=== PATIENT | female | born 1990 | race Caucasian/White ===

== ENCOUNTER → 2017-03-09 | Outpatient (REF) | payer BC ==
[~2017-03-09] MED LIST: ACET50TA PO; IBUP60TA PO; VITAPRTA PO; [UNRECOGNIZED DRUG - CODE] PO
== END ==
LOC: M LAB REF 15:14
PROVIDERS: ATTEND Physician Assistant
DX: J06.9 Acute upper respiratory infection, unspecified (principal)

== ENCOUNTER 2017-08-14 12:21 | Emergency (ER) | payer OTHER, BC ==
[2017-08-14] MEDS: KETOROLAC TROMETHAMINE 10 MG TAB PO (12:30)
== END 2017-08-14 12:39 | disposition home or self-care (01) ==
LOC: M ED 12:21
DX: S39.92XA Unspecified injury of lower back, initial encounter (principal); X50.0XXA Overexertion from strenuous movement or load, initial encounter; Y92.129 Unspecified place in nursing home as the place of occurrence of the external cause
CPT/HCPCS: 99282

== ENCOUNTER 2018-12-06 11:29 | Emergency (ER) | payer OTHER ==
[~2018-12-06] VITALS: Ht 162.6 cm; Wt 59.5 kg
[~2018-12-06 11:29] MED LIST changes: -ACET50TA PO; +IBUP600T42 PO; -IBUP60TA PO; +MAPA500T2 PO; +NAPR-885 PO; +ROBA500T PO
[2018-12-06] MEDS ORDERED: ACET160S3 PO (11:35)
[2018-12-06 12:23] LABS: BASO % 0.3 % (0.0-1.0); EOS % 0.2 % (0.0-3.0); HEMATOCRIT 35.1 % (36.0-47.0); HEMOGLOBIN 11.9 g/dl (12.0-15.5); LYMPH # 1.5 10^3/uL (1.5-6.5); LYMPH % 15.3 % (24.0-44.0); MEAN CORPUSCULAR HEMOGLOBIN 30.4 pg (27.0-33.0); MEAN CORPUSCULAR HGB CONC 33.9 g/dl (32.0-36.5); MEAN CORPUSCULAR VOLUME 89.8 fl (80.0-96.0); MONO # 0.6 10^3/uL (0.0-0.8); MONO % 6.3 % (0.0-5.0); NEUTROPHILS # 7.6 10^3/uL (1.8-7.7); NEUTROPHILS % 77.4 % (36.0-66.0); PLATELET COUNT, AUTOMATED 163 10^3/uL (150-450); RED BLOOD COUNT 3.91 10^6/uL (4.00-5.40); WHITE BLOOD COUNT 9.9 10^3/uL (4.0-10.0)
--- NOTE | 2018-12-06 13:15 | REP ---
FIRST TRIMESTER ULTRASOUND: Real-time sonographic evaluation of gravid uterus performed utilizing transabdominal technique. There is a single living intrauterine gestation. Estimated gestational age is 6 weeks 6 days based on a crown-rump length of 9 mm, EDC 07/26/2019. heart rate 141 beats per minute. There is no subchorionic hemorrhage. Cystic structure in the left ovary may represent a corpus luteum 3.0 x 3.4 x 2.9 cm. No torsion is seen. Electronically Signed by Dale Sharma MD 12/07/2018 02:57 P
[2018-12-06 14:00] LABS: BLOOD UREA NITROGEN 8 MG/DL (7-18); CALCIUM LEVEL 8.6 MG/DL (8.5-10.1); CARBON DIOXIDE LEVEL 21 MEQ/L (21-32); CHLORIDE LEVEL 106 MEQ/L (98-107); CREATININE FOR GFR 0.64 MG/DL (0.55-1.30); GLOMERULAR FILTRATION RATE > 60.0 (>60); GLUCOSE, FASTING 89 MG/DL (70-100); POTASSIUM SERUM 3.8 MEQ/L (3.5-5.1); SODIUM LEVEL 138 MEQ/L (136-145)
[2018-12-06 14:18] LABS: HCG, SERUM QUANTITATIVE 127322 MIU/ML
[2018-12-06 15:15] VITALS: BP 109/65
== END 2018-12-06 15:31 | disposition home or self-care (01) ==
LOC: M ED 11:29
DX: O20.0 Threatened abortion (principal); O26.891 Other specified pregnancy related conditions, first trimester; O20.8 Other hemorrhage in early pregnancy; Z3A.01 Less than 8 weeks gestation of pregnancy

== ENCOUNTER → 2018-12-20 | Outpatient (CLI) | payer OTHER ==
[~2018-12-20] MED LIST changes: +ACET160S3 PO
[2018-12-20 14:43] LABS: BASO % 0.3 % (0.0-1.0); EOS # 0.1 10^3/uL (0.0-0.50); EOS % 0.8 % (0.0-3.0); HEMATOCRIT 37.4 % (36.0-47.0); HEMOGLOBIN 12.3 g/dl (12.0-15.5); LYMPH # 2.1 10^3/uL (1.5-6.5); MEAN CORPUSCULAR HEMOGLOBIN 31.1 pg (27.0-33.0); MEAN CORPUSCULAR HGB CONC 32.9 g/dl (32.0-36.5); MEAN CORPUSCULAR VOLUME 94.4 fl (80.0-96.0); MONO # 0.8 10^3/uL (0.0-0.8); MONO % 6.7 % (0.0-5.0); NEUTROPHILS # 8.4 10^3/uL (1.8-7.7); NEUTROPHILS % 73.6 % (36.0-66.0); PLATELET COUNT, AUTOMATED 165 10^3/uL (150-450); RED BLOOD COUNT 3.96 10^6/uL (4.00-5.40); WHITE BLOOD COUNT 11.4 10^3/uL (4.0-10.0)
[2018-12-21 11:43] LABS: HEPATITIS C VIRUS ABY INDEX 0.1 INDEX (<0.8); HIV 1&2 SCREEN CENTAUR NEGATIVE (NEGATIVE); RUBELLA IgG QUALITATIVE IMMUNE (IMMUNE)
[2018-12-21 11:59] LABS: CHLAMYDIA DNA AMPLIFICATION NEGATIVE (NEGATIVE); GC DNA AMPLIFICATION NEGATIVE (NEGATIVE)
== END ==
LOC: M SMT 11:15
PROVIDERS: ATTEND Advanced Practice Midwife
DX: Z34.81 Encounter for supervision of other normal pregnancy, first trimester (principal); Z3A.09 9 weeks gestation of pregnancy

== ENCOUNTER → 2019-02-22 | Outpatient (CLI) | payer OTHER ==
--- NOTE | 2019-02-22 13:14 | REP ---
Obstetric ultrasound for anatomy: There is a single intrauterine gestation in a breech presentation. There is movement and cardiac activity. The heart rate is 147 beats per minute. Placenta is posterior and fundal. There is no placenta previa or abruptio. The placenta is grade 1. The amniotic fluid volume subjectively is normal. The cervix measures 4.1 cm in length. There is a lower uterine segment contraction during the examination. Gestational age by today's ultrasound is 19 weeks 1 day/BK 07/18/2019. Gestational age by the first ultrasound is 18 weeks 0 days/BK 07/26/2019. Gestational age by LMP is 18 weeks 5 days/BK 07/21/2019. weight is 279 grams/0 pounds, 9 ounces. This is the 66th percentile for 18 weeks 5 days. The following anatomic structures are identified and are unremarkable: Cranium, cavum septum pellucidum, cerebellum, upper lip, facial profile, face, lungs, four-chamber heart, cardiac right and left ventricular outflow tracts, diaphragm, stomach, cord insertion, three-vessel cord, bladder, upper lower extremities. There are bilateral choroid plexus cysts. The renal calyces are mildly dilated bilaterally measuring up to 4.9 mm on the right at 4.5 mm on the left. The spine is suboptimally visualized because of position. Followup study dedicated to the choroid plexus, kidneys and spine might be considered. Electronically Signed by Dale Garza MD 02/22/2019 01:06 P
== END ==
LOC: M RAD 10:24
PROVIDERS: ATTEND Obstetrics & Gynecology
DX: O32.1XX0 Maternal care for breech presentation, not applicable or unspecified (principal); Z36.89 Encounter for other specified antenatal screening; Z3A.18 18 weeks gestation of pregnancy

== ENCOUNTER → 2019-03-18 | Outpatient (CLI) | payer OTHER | LOC: M SMT 11:01 | PROVIDERS: ATTEND Advanced Practice Midwife | DX: O28.5 Abnormal chromosomal and genetic finding on antenatal screening of mother (principal); Z3A.00 Weeks of gestation of pregnancy not specified ==

== ENCOUNTER → 2019-03-25 | Outpatient (CLI) | payer OTHER ==
--- NOTE | 2019-03-25 13:28 | REP ---
Clinical: Anatomical evaluation. Comparison: 02/22/2019 Findings: Examination demonstrates a single live intrauterine in cephalic presentation. motion is identified by technologist. Placenta is noted posterior fundal and grade zero without evidence for placenta previa or abruption. Amniotic fluid volume is normal. Cervix measures 4.3 cm in length and appears closed. No evidence for nuchal cord. Gestational age by LMP 23 weeks 1 day with BK at 07/21/2019 . Gestational age by current measurements 23 weeks 6 days with BK 07/16/2019 . FHR equals 141 beats per minute. Estimated weight 664 grams ( 78th percentile). Anatomical assessment demonstrates normal structures including choroid plexus, and spine. Impression: Single live intrauterine in cephalic presentation demonstrating appropriate interval growth. In conjunction with prior examination anatomical assessment is complete and normal. No gross abnormalities are identified. Electronically Signed by Toni Olivia MD 03/25/2019 01:19 P
== END ==
LOC: M RAD 12:31
PROVIDERS: ATTEND Advanced Practice Midwife
DX: Z36.9 Encounter for antenatal screening, unspecified (principal); Z3A.23 23 weeks gestation of pregnancy

== ENCOUNTER → 2019-04-15 | Outpatient (CLI) | payer OTHER ==
[2019-04-15 14:01] LABS: HEMATOCRIT 29.8 % (36.0-47.0); HEMOGLOBIN 9.4 g/dl (12.0-15.5); MEAN CORPUSCULAR HEMOGLOBIN 30.3 pg (27.0-33.0); MEAN CORPUSCULAR HGB CONC 31.5 g/dl (32.0-36.5); MEAN CORPUSCULAR VOLUME 96.1 fl (80.0-96.0); PLATELET COUNT, AUTOMATED 104 10^3/uL (150-450); WHITE BLOOD COUNT 8.4 10^3/uL (4.0-10.0)
== END ==
LOC: M SMT 09:57
PROVIDERS: ATTEND Advanced Practice Midwife
DX: Z34.82 Encounter for supervision of other normal pregnancy, second trimester (principal)

== ENCOUNTER → 2019-05-14 | Outpatient (REF) | payer OTHER ==
[2019-05-14 18:33] LABS: HEMATOCRIT 34.4 % (36.0-47.0); HEMOGLOBIN 11.1 g/dl (12.0-15.5); MEAN CORPUSCULAR HEMOGLOBIN 29.8 pg (27.0-33.0); MEAN CORPUSCULAR HGB CONC 32.3 g/dl (32.0-36.5); MEAN CORPUSCULAR VOLUME 92.5 fl (80.0-96.0); PLATELET COUNT, AUTOMATED 106 10^3/uL (150-450); RED BLOOD COUNT 3.72 10^6/uL (4.00-5.40); WHITE BLOOD COUNT 9.2 10^3/uL (4.0-10.0)
== END ==
LOC: M PLALAB 13:28
PROVIDERS: ATTEND Specialist
DX: O99.013 Anemia complicating pregnancy, third trimester (principal)

== ENCOUNTER → 2019-06-18 | Outpatient (CLI) | payer OTHER ==
--- NOTE | 2019-06-19 03:06 | REP ---
Clinical: Growth evaluation evaluation. Comparison: 03/25/2019 . Findings: Examination demonstrates a single live intrauterine in cephalic presentation. motion is identified by technologist. Placenta is noted posterior and grade I without evidence for placenta previa or abruption. Amniotic fluid volume is normal. Cervix measures 4.8 cm in length and appears closed. No evidence for nuchal cord. Gestational age by LMP 35 weeks 2 days with BK 07/21/2019 . Gestational age by current measurements 36 weeks 0 days with BK 07/16/2019 . FHR equals 139 beats per minute. BPD 8.8 cm 35 weeks 3 days HC 31.6 cm 35 weeks 4 days AC 35.7 cm 39 weeks 4 days (greater than 95th percentile) FL 6.8 cm 34 weeks 6 days HL 6.0 cm 35 weeks 0 days HC/AC ratio 0.89 Estimated weight 3249 grams ( 92nd percentile). Amniotic fluid index: 12.4 cm Umbilical cord SD ratio: 2.02 Impression: Single live intrauterine in cephalic presentation demonstrating essentially normal appropriate growth. Findings as described above. Electronically Signed by Toni Olivia MD 06/19/2019 02:57 A
== END ==
LOC: M RAD 09:52
PROVIDERS: ATTEND Advanced Practice Midwife
DX: O26.849 Uterine size-date discrepancy, unspecified trimester (principal); Z3A.35 35 weeks gestation of pregnancy

== ENCOUNTER → 2019-06-25 | Outpatient (REF) | payer OTHER | LOC: M SFHCWAGY 13:42 | PROVIDERS: ATTEND Advanced Practice Midwife | DX: Z34.93 Encounter for supervision of normal pregnancy, unspecified, third trimester (principal) ==

== ENCOUNTER → 2019-06-25 | Outpatient (CLI) | payer OTHER | LOC: M PLALAB 11:08 | PROVIDERS: ATTEND Advanced Practice Midwife | DX: Z34.93 Encounter for supervision of normal pregnancy, unspecified, third trimester (principal) ==

== ENCOUNTER 2019-07-14 14:39 | Inpatient (IN) | payer OTHER ==
[2019-07-14] VITALS (12 sets, daily range): BP systolic 92–132; BP diastolic 53–75
[~2019-07-14] VITALS: Ht 162.6 cm; Wt 74.6 kg
[2019-07-14] MEDS ORDERED: PRENTAB9 PO (15:07)
[2019-07-14] MEDS ORDERED: TUMS500C PO ×2 (15:07)
[2019-07-14] MEDS ORDERED: LACTATED RINGER'S 1000 ML IV STA (15:44)
[2019-07-14 16:05] LABS: HEMATOCRIT 35.1 % (36.0-47.0); HEMOGLOBIN 11.6 g/dl (12.0-15.5); MEAN CORPUSCULAR HEMOGLOBIN 29.6 pg (27.0-33.0); MEAN CORPUSCULAR VOLUME 89.5 fl (80.0-96.0); PLATELET COUNT, AUTOMATED 101 10^3/uL (150-450); RED BLOOD COUNT 3.92 10^6/uL (4.00-5.40); WHITE BLOOD COUNT 8.7 10^3/uL (4.0-10.0)
[2019-07-14] MEDS ORDERED: OXYTOCIN DRIP 30 UNITS in IV 1 EA IV SCH (16:15)
[2019-07-14] MEDS ORDERED: FENTANYL 2MCG/ML ROPIVACAINE 0.2% IN 0.9% NACL 100ML IVBAG As Ordered ONE (17:10)
[2019-07-14] MEDS: LR 1,000 ML IV SCH ×2 (17:27→21:49)
[2019-07-14] MEDS ORDERED: LACTATED RINGER'S 1000 ML IV PRN (18:30)
[2019-07-14] MEDS ORDERED: EPIDURAL COMMENT XX SCH (18:30)
[2019-07-14] MEDS ORDERED: EPIDURAL/PCA KEYS XX PRN (18:30)
[2019-07-14] MEDS ORDERED: ePHEDrine SULFATE 25 MG/5 ML(5MG/ML) SYRINGE IV PRN (18:30)
[2019-07-14] MEDS ORDERED: diphenhydrAMINE INJ 50MG/ML VIAL (J1200) IV PRN (18:30)
[2019-07-14] MEDS ORDERED: FENTANYL/ROPIVACAINE/NACL BAG 100 ML EPIDURAL SCH (18:30)
[2019-07-14] MEDS ORDERED: ONDANSETRON 4MG/2ML VIAL (J2405) IV PRN (18:30)
[2019-07-14] MEDS ORDERED: NALOXONE INJ 0.4 MG/1 ML VIAL (J2310) IV PRN (18:30)
[2019-07-14] MEDS ORDERED: REFRIGERATOR IV KEYS XX PRN (18:30)
[2019-07-15] MEDS ORDERED: OXYTOCIN DRIP 30 UNITS in IV 1 EA IV SCH (01:21)
[2019-07-15] MEDS ORDERED: LR 1,000 ML IV SCH (01:21)
[2019-07-15] MEDS ORDERED: DOCUSATE SODIUM 100 MG CAP PO PRN (01:30)
[2019-07-15] MEDS ORDERED: IBUPROFEN 600 MG TAB PO PRN (01:30)
[2019-07-15] MEDS ORDERED: MEASLES,MUMPS,RUBELLA VACCINE INJ (MMR-II) (90707) SC SCH (01:30)
[2019-07-15] MEDS ORDERED: DIBUCAINE 1% OINTMENT 30GM TOP PRN (01:30)
[2019-07-15] MEDS ORDERED: ONDANSETRON 4MG/2ML VIAL (J2405) IV PRN (01:30)
[2019-07-15] MEDS ORDERED: PROMETHAZINE 25 MG TAB PO PRN (01:30)
[2019-07-15] MEDS ORDERED: ACETAMINOPHEN TAB 650MG DOSE (2X325MG) PO PRN (01:30)
[2019-07-15] MEDS ORDERED: RHOGAM 300 MCG (1500 IU) INJ (J2790) IM SCH (01:30)
[2019-07-15] MEDS: ACETAMINOPHEN 500 MG TAB PO PRN ×2 (01:59→13:03)
[2019-07-15 03:45] VITALS: BP 116/69
[2019-07-15] MEDS: IBUPROFEN 800 MG TAB PO PRN ×2 (07:51→18:00)
[2019-07-15] MEDS: PRENATAL VITAMINS CHEWABLE TABLET PO SCH (07:51)
[2019-07-15 18:00] VITALS: BP 112/69
[2019-07-16 06:00] VITALS: BP 128/76
[2019-07-16] MEDS: ACETAMINOPHEN 500 MG TAB PO PRN (06:19)
[2019-07-16] MEDS ORDERED: ACET-683 PO (08:48)
[2019-07-16] MEDS ORDERED: IBUP80TA PO (08:48)
[2019-07-16] MEDS: PRENATAL VITAMINS CHEWABLE TABLET PO SCH (08:51)
[2019-07-16] MEDS: IBUPROFEN 800 MG TAB PO PRN (15:38)
[2019-07-16 18:08] VITALS: BP 125/79
== END 2019-07-16 18:15 | disposition home or self-care (01) | DRG 560 ==
LOC: M LDI 14:39 → M OBS 07-15 03:29
PROVIDERS: ADMIT Obstetrics & Gynecology; ATTEND Obstetrics & Gynecology
PROC: 10907ZC Drainage of Amniotic Fluid, Therapeutic from Products of Conception, Via Natural or Artificial Opening (ICD-10-PCS; 2019-07-14)
PROC: 3E033VJ Introduction of Other Hormone into Peripheral Vein, Percutaneous Approach (ICD-10-PCS; 2019-07-14)
PROC: 10E0XZZ Delivery of Products of Conception, External Approach (ICD-10-PCS; principal; 2019-07-15)
DX: O36.63X0 Maternal care for excessive fetal growth, third trimester, not applicable or unspecified (principal); Z37.0 Single live birth; Z3A.39 39 weeks gestation of pregnancy

== ENCOUNTER → 2022-01-18 | Outpatient (REF) | payer OTHER ==
[~2022-01-18] MED LIST changes: +ACET-683 PO; +IBUP80TA PO; +PRENTAB9 PO; +TUMS500C PO
[2022-01-18 12:10] LABS: BASO % 0.4 % (0.0-1.0); EOS # 0.2 10^3/uL (0.0-0.5); EOS % 2.4 % (0.0-3.0); HEMATOCRIT 38.1 % (36.0-47.0); HEMOGLOBIN 12.6 g/dl (12.0-15.5); LYMPH # 2.1 10^3/uL (1.5-5.0); LYMPH % 27.1 % (24.0-44.0); MEAN CORPUSCULAR HEMOGLOBIN 31.5 pg (27.0-33.0); MEAN CORPUSCULAR HGB CONC 33.1 g/dl (32.0-36.5); MEAN CORPUSCULAR VOLUME 95.3 fl (80.0-96.0); MONO # 0.6 10^3/uL (0.0-0.8); NEUTROPHILS # 4.9 10^3/uL (1.5-8.5); PLATELET COUNT, AUTOMATED 153 10^3/uL (150-450); WHITE BLOOD COUNT 7.9 10^3/uL (4.0-10.0)
[2022-01-18 12:52] LABS: ALBUMIN 4.3 GM/DL (3.2-5.2); ALT/SGPT 13 U/L (12-78); BILIRUBIN,TOTAL 0.8 MG/DL (0.2-1.0); BLOOD UREA NITROGEN 14 MG/DL (7-18); CALCIUM LEVEL 8.9 MG/DL (8.5-10.1); CARBON DIOXIDE LEVEL 26 MEQ/L (21-32); CHLORIDE LEVEL 108 MEQ/L (98-107); CREATININE FOR GFR 0.83 MG/DL (0.55-1.30); FREE T4 0.92 NG/DL (0.76-1.46); GLOMERULAR FILTRATION RATE > 60.0 (>60); GLUCOSE, FASTING 94 MG/DL (70-100); POTASSIUM SERUM 4.1 MEQ/L (3.5-5.1); SODIUM LEVEL 138 MEQ/L (136-145); TOTAL PROTEIN 7.4 GM/DL (6.4-8.2)
== END ==
LOC: M SFHCCLAY 07:36
PROVIDERS: ATTEND Nurse Practitioner Family
DX: O99.013 Anemia complicating pregnancy, third trimester (principal); F34.1 Dysthymic disorder; F51.04 Psychophysiologic insomnia

== ENCOUNTER → 2022-07-28 | Outpatient (REF) | payer OTHER | LOC: M SFHCCLAY 11:41 | PROVIDERS: ATTEND Nurse Practitioner Family | DX: R19.7 Diarrhea, unspecified (principal) ==

== ENCOUNTER → 2022-08-23 | Outpatient (CLI) | payer OTHER ==
[~2022-08-23] MED LIST changes: +E-Z-GAS II EFFERVESCENT PACKET (SODIUM BICARB./CITRIC ACID/SIMETHICONE) As Ordered ONE; +E-Z-HD 98% w/w 340GM SUSP BTL As Ordered ONE; +E-Z-PAQUE 96% w/w SUSP 176GM BTL As Ordered ONE
== END ==
LOC: M RAD 08:27
PROVIDERS: ATTEND Nurse Practitioner Family
DX: R10.10 Upper abdominal pain, unspecified (principal)

== ENCOUNTER → 2023-03-06 | Outpatient (REF) | payer OTHER ==
[~2023-03-06] MED LIST changes: -E-Z-GAS II EFFERVESCENT PACKET (SODIUM BICARB./CITRIC ACID/SIMETHICONE) As Ordered ONE; -E-Z-HD 98% w/w 340GM SUSP BTL As Ordered ONE; -E-Z-PAQUE 96% w/w SUSP 176GM BTL As Ordered ONE
== END ==
LOC: M SFHCWAGY 13:20
PROVIDERS: ATTEND Nurse Practitioner Family
DX: N39.0 Urinary tract infection, site not specified (principal)

== ENCOUNTER → 2023-08-23 | Outpatient (REF) | payer OTHER | LOC: M SFHCWAGY 15:23 | PROVIDERS: ATTEND Nurse Practitioner Family | DX: Z12.4 Encounter for screening for malignant neoplasm of cervix (principal) ==

== ENCOUNTER → 2024-02-01 | Outpatient (REF) | payer OTHER ==
[2024-02-01 13:45] LABS: APPEARANCE, URINE CLEAR (CLEAR); BACTERIA, URINE AUTO 1+ (NEGATIVE); BILIRUBIN, URINE AUTO NEGATIVE (NEGATIVE); BLOOD, URINE BLOOD NEGATIVE (NEGATIVE); COLOR, URINE STRAW (YELLOW); GLUCOSE, URINE (UA) AUTO NEGATIVE (NEGATIVE); KETONE, URINE AUTO NEGATIVE (NEGATIVE); LEUKOCYTE ESTERASE, URINE AUTO NEGATIVE (NEGATIVE); NITRITE, URINE AUTO NEGATIVE (NEGATIVE); PROTEIN, URINE AUTO NEGATIVE (NEGATIVE); RBC, URINE AUTO 1 /HPF (0-3); SPECIFIC GRAVITY URINE AUTO 1.005 (1.002-1.035); SQUAMOUS EPITHELIAL CELL UR AU 2 /HPF (0-6); UROBILINOGEN, URINE AUTO 0.2 mg/dL (0.0-2.0); WBC, URINE AUTO 1 /HPF (0-3)
[2024-02-01 14:26] LABS: Trichomonas vaginalis (AMP) NOT DETECTED (NEGATIVE)
[2024-02-01 14:49] LABS: GC DNA AMPLIFICATION NEGATIVE (NEGATIVE)
== END ==
LOC: M SFHCWAGY 12:21
PROVIDERS: ATTEND Nurse Practitioner Family
DX: R39.15 Urgency of urination (principal); N39.0 Urinary tract infection, site not specified; Z11.3 Encounter for screening for infections with a predominantly sexual mode of transmission; R30.0 Dysuria

== ENCOUNTER → 2024-02-02 | Outpatient (REF) | payer OTHER | LOC: M PLALAB 11:20 | PROVIDERS: ATTEND Nurse Practitioner Family | DX: S30.814A Abrasion of vagina and vulva, initial encounter (principal); N89.8 Other specified noninflammatory disorders of vagina ==

== ENCOUNTER → 2024-02-13 | Outpatient (CLI) | payer OTHER ==
[2024-02-13 15:35] LABS: BASO % 0.6 % (0.0-1.0); EOS # 0.1 10^3/uL (0.0-0.5); EOS % 1.8 % (0.0-3.0); HEMATOCRIT 37.8 % (36.0-47.0); HEMOGLOBIN 12.1 g/dl (12.0-15.5); LYMPH # 1.4 10^3/uL (1.5-5.0); LYMPH % 21.1 % (24.0-44.0); MEAN CORPUSCULAR HEMOGLOBIN 30.9 pg (27.0-33.0); MEAN CORPUSCULAR VOLUME 96.7 fl (80.0-96.0); MONO # 0.6 10^3/uL (0.0-0.8); MONO % 9.2 % (2.0-8.0); NEUTROPHILS # 4.3 10^3/uL (1.5-8.5); NEUTROPHILS % 66.1 % (36.0-66.0); PLATELET COUNT, AUTOMATED 191 10^3/uL (150-450); RED BLOOD COUNT 3.91 10^6/uL (4.00-5.40); WHITE BLOOD COUNT 6.5 10^3/uL (4.0-10.0)
[2024-02-13 16:00] LABS: ALBUMIN 4.1 G/DL (3.2-5.2); ALKALINE PHOSPHATASE 74 U/L (46-116); ALT/SGPT 15 U/L (7.0-40); AST/SGOT 9 U/L (<34); BILIRUBIN,TOTAL 0.4 MG/DL (0.3-1.2); BLOOD UREA NITROGEN 14 MG/DL (9-23); CARBON DIOXIDE LEVEL 28 MMOL/L (20-31); CHLORIDE LEVEL 108 MMOL/L (98-107); CREATININE FOR GFR 0.75 MG/DL (0.55-1.30); GLOMERULAR FILTRATION RATE > 60.0 (>60); GLUCOSE, FASTING 80 MG/DL (60-100); POTASSIUM SERUM 4.2 MMOL/L (3.5-5.1); SODIUM LEVEL 140 MMOL/L (136-145)
[2024-02-13 16:04] LABS: FREE T4 0.93 NG/DL (0.89-1.76); THYROID STIMULATING HORMONE 2.114 uIU/ML (0.55-4.78)
== END ==
LOC: M PLALAB 13:44
PROVIDERS: ATTEND Nurse Practitioner Family
DX: F41.9 Anxiety disorder, unspecified (principal)

== ENCOUNTER → 2024-03-11 | Outpatient (REF) | LOC: M EMP 10:58 | PROVIDERS: ATTEND Family Medicine | DX: Z11.52 Encounter for screening for COVID-19 (principal) ==

== ENCOUNTER → 2024-03-11 | Outpatient (REF) | LOC: M EMP 11:02 | PROVIDERS: ATTEND Family Medicine | DX: Z11.52 Encounter for screening for COVID-19 (principal) ==